=== PATIENT | female | born 1950 | race Caucasian/White ===

== ENCOUNTER → 2016-11-25 | Outpatient (CLI) | payer MEDICARE ==
[~2016-11-25] MED LIST: ASA CHILDREN'S81 MG PO; CALCIUM500 M1; DAILY MULTIPLE1 EAC1 PO; FLAGYL-DPS500 MG PO; LEVAQUIN DPS500 MG PO; NITROSTAT0.4 MG SL; PRILOSEC DPS20 MG PO; SYNTHROID137 MCG PO; TYLENOL DPS325 MG PO; ULTRAM DPS50 MG PO; VITAMIN D31000 UNIT PO
== END | disposition home or self-care (01) ==
LOC: RAD.S 08:49
DX: Z12.31 Encounter for screening mammogram for malignant neoplasm of breast (principal)